=== PATIENT | female | born 1980 | race Two or more races ===

== ENCOUNTER 2025-01-23 08:04 | Emergency (ER) | payer MEDICAID ==
[~2025-01-23] VITALS: Ht 170.2 cm; Wt 91.0 kg
[2025-01-23 08:11] VITALS: TEMP 36.9; O2SAT 100
[2025-01-23] MEDS ORDERED: B50 PO (08:47)
[2025-01-23] MEDS ORDERED: P50 PO (08:47)
[2025-01-23] MEDS: DIPHENHYDRAMINE 25MG CAPSULE PO ONE (08:56)
[2025-01-23] MEDS: PREDNISONE 20MG TABLET PO ONE (08:56)
[2025-01-23 09:11] VITALS: BP 108/72; PULSE 63; RESP 16; O2SAT 100
== END 2025-01-23 09:16 | disposition home or self-care (01) ==
LOC: ER 08:04
DX: L50.9 Urticaria, unspecified (principal); Z98.890 Other specified postprocedural states
CPT/HCPCS: 99283; Q0163; J7512